=== PATIENT | male | born 1950 | race Caucasian/White ===

== ENCOUNTER 2018-08-01 10:07 | Emergency (ER) | payer OTHER ==
[2018-08-01 10:23] VITALS: TEMP 99.8; BMI 33.9
--- NOTE | 2018-08-01 10:28 | PDOC ---
History of Present Illness - General Chief Complaint: Redness To Affected Area Stated Complaint: RIGHT ELBOW PAIN Time Seen by Provider: 08/01/18 10:20 - History of Present Illness Initial Comments: 68yo M with PMH of HTN, HLD, DM, recent admission for RUE cellulitis presenting with right elbow pain. Patient reports that the pain started two days ago and describes it as excruciating. Denies injury or trauma to the area. No numbness , tingling, or loss of sensation. Patient says this pain is reminiscent of the previous episode of cellulitis for which he was admitted. Uncertain whether he had any fever or chills at home. Has not taken anything at home for his pain. Denies chest pain, shortness of breath, or abdominal pain. Per chart review: Patient went to urgent care on 05/19/18 and prescribed Keflex 500 TID Cellulitis worsened. Patient seen in this ED and admitted. Given Zosyn (05/23-05/30 ) and Vancomycin (05/25-05/30) Transitioned to Levaquin 500 and Augmentin 500. Discharged with ID followup Past History - Past Medical History Allergies/Adverse Reactions: Allergies Allergy/AdvReac Type Severity Reaction Status Date / Time No Known Allergies Allergy Verified 08/01/18 10:09 Home Medications: Ambulatory Orders Aspirin [Aspirin EC] 81 mg PO DAILY 05/23/18 Glimepiride 2 mg PO DAILY 05/23/18 Lotrel 10-40 1 tab PO DAILY 05/23/18 Metoprolol Succinate [Toprol Xl] 100 mg PO DAILY 05/23/18 [place]-3/Dha/Epa/Fish Oil [Fish Oil 1,000 mg Softgel] 1 each PO BID 05/23/18 Rosuvastatin Calcium [Crestor] 10 mg PO HS 05/23/18 Sitagliptin Phos/Metformin HCl [Janumet 50-1,000 mg Tablet] 1 each PO BID Acetaminophen [Tylenol .Regular Strength -] 650 mg PO Q4H PRN tablet 05/30/18 Amoxicillin/Potassium Clav [Augmentin 875-125 Tablet] 1 each PO BID #14 tablet 08/01/18 Levofloxacin [Levaquin] 500 mg PO DAILY #7 tablet 08/01/18 COPD: No Diabetes: Yes HTN: Yes Hypercholesterolemia: Yes - Suicide/Smoking/Psychosocial Hx Smoking History: Never smoked Have you smoked in the past 12 months: No Number of Cigarettes Smoked Daily: 0 Hx Alcohol Use: Yes (Fridays ONLY) Drug/Substance Use Hx: No Substance Use Type: None Hx Substance Use Treatment: No Review of Systems - Review of Systems Comments:: Constitutional: ?fever, ?chills Cardiovascular: no chest pain Respiratory: no shortness of breath Gastrointestinal: no abdominal pain, no nausea, no vomiting Musculoskeletal: +R.elbow pain Skin: no rash, no itching Neurologic: no headache, no dizziness *Physical Exam - Vital Signs Last Vital Signs Temp Pulse Resp BP Pulse Ox 99.8 F H 69 16 186/87 H 97 08/01/18 10:08 08/01/18 10:08 08/01/18 10:08 08/01/18 10:08 08/01/18 10:08 - Physical Exam Comments: General: Awake, alert, and fully oriented, in no acute distress Head: no signs of trauma Eyes: EOMI, sclera anicteric ENT: Moist mucus membranes Neck: Normal ROM, supple Lungs: Lungs clear, Normal breath sounds Cardio: Regular rhythm, S1 and S2 present Abdomen: Soft, nontender Extremities: Normal range of motion, Distal pulses present. 5x5cm area of cellulitis overlying R. elbow with warmth and erythema, pain on active and passive motion; no induration, fluctuance or streaking; neurovascularly intact SKIN: Warm, Dry, normal turgor Neurologic: Cranial nerves II through XII grossly intact. Normal speech ED Treatment Course - LABORATORY CBC & Chemistry Diagram: 08/01/18 11:00 08/01/18 11:00 Medical Decision Making - Medical Decision Making 68yo M with PMH of HTN, HLD, DM, recent admission for RUE cellulitis presenting with right elbow pain. -R. elbow imaging to assess for osteomyelitis -Labs: CBC, CMP, ESR, CRP, blood cultures -Vanc and Zosyn 08/01/18 11:02 WBC 7.0 08/01/18 11:25 ESR 25, CRP 5.2, Uric Acid 7.4 Discussed case with patient's PCP, Dr. Meadows. Plan to discharge patient with oral antibiotics. Will follow-up with Dr. Meadows on Saturday at 4:45pm. Patient amenable to plan. 08/01/18 14:40 *DC/Admit/Observation/Transfer Diagnosis at time of Disposition: Cellulitis Qualifiers: Site of cellulitis: extremity Site of cellulitis of extremity: upper extremity Laterality: right Qualified Code(s): L03.113 - Cellulitis of right upper limb - Discharge Dispostion Disposition: HOME Condition at time of disposition: Good - Prescriptions Prescriptions: Amoxicillin/Potassium Clav [Augmentin 875-125 Tablet] 1 each PO BID #14 tablet Levofloxacin [Levaquin] 500 mg PO DAILY #7 tablet - Referrals Referrals: Vick Meadows MD [Primary Care Provider] - - Patient Instructions Printed Discharge Instructions: DI for Cellulitis -- Adult Additional Instructions: Follow-up with Dr. Meadows on Saturday08/06/18 at 4:45pm Prescriptions sent to your pharmacy. You can take [id number] tylenol for your pain. Follow the instructions on the medication bottle. RETURN to the ED if: you develop any high fevers, develop nausea or vomiting, have spreading redness beyond the outlined margins, or severe pain at the infection site. - Post Discharge Activity
--- NOTE | 2018-08-01 10:41 | PDOC ---
Attending Attestation - Resident Resident Name: Khushi Calderon - ED Attending Attestation I have performed the following: I have examined & evaluated the patient, The case was reviewed & discussed with the resident, I agree w/resident's findings & plan, Exceptions are as noted - HPI HPI: 08/01/18 10:41 68 yo M h/o HTN, HLD, Dm, recent admission for septic bursitis (s/p Vanc and Zosyn) He returns to the ER with a complaint of right elbow pain with range of motion No known fevers at home No known traumatic injury - Physicial Exam PE: 08/01/18 10:41 GENERAL: The patient is in no acute distress. LUNGS: Breath sounds equal, clear to auscultation bilaterally. HEART:Regular rate and rhythm, normal S1 and S2 without murmur, rub or gallop. ABDOMEN: Soft, nontende EXTREMITIES: right elbow swollen, erythematous, warm, pain with range of motion (active or passive), not tender to palpation NEUROLOGICAL: Cranial nerves II through XII grossly intact. Normal speech. No focal neurological deficits. MUSCULOSKELETAL: no deformities, right elbow swollen SKIN: see above, no open skin, no rash, no wounds, no purulent drainage 08/01/18 11:06 - Medical Decision Making 08/01/18 11:07 Will do: rectal temp (oral temp 99.8, concerning for fever) Labs including ESR, CRP, Blood culture Will do Xray Unclear why this has recurred Will give Vanc and Zosyn Possible Admission Pt seen by hospitalist Pt can be discharged to home on po abx Discharge Disposition - Diagnosis Cellulitis Qualifiers: Site of cellulitis: extremity Site of cellulitis of extremity: upper extremity Laterality: right Qualified Code(s): L03.113 - Cellulitis of right upper limb - Discharge Dispostion Disposition: HOME Condition at time of disposition: Good Last Admission D/C Date: 05/30/18 - Prescriptions Prescriptions: Amoxicillin/Potassium Clav [Augmentin 875-125 Tablet] 1 each PO BID #14 tablet Levofloxacin [Levaquin] 500 mg PO DAILY #7 tablet - Referrals Referrals: Vick Meadows MD [Primary Care Provider] - - Patient Instructions Printed Discharge Instructions: DI for Cellulitis -- Adult Additional Instructions: Follow-up with Dr. Meadows on Saturday08/06/18 at 4:45pm Prescriptions sent to your pharmacy. You can take [id number] tylenol for your pain. Follow the instructions on the medication bottle. RETURN to the ED if: you develop any high fevers, develop nausea or vomiting, have spreading redness beyond the outlined margins, or severe pain at the infection site. - Post Discharge Activity
[2018-08-01] MEDS ORDERED: PIPERACILLIN/TAZOB 3.375 GM 3.375 GM in DEXTROSE 5%-WATER - 50 ML IVPB ONE (10:49)
[2018-08-01] MEDS ORDERED: VANCOMYCIN 1,000 MG in DEXTROSE 5%-WATER - 250 ML IVPB ONE (10:49)
[2018-08-01] MEDS ORDERED: VANCOMYCIN 1,000 MG VIAL (RESTRICTED TO ID ONLY) ONE (11:16)
[2018-08-01] MEDS ORDERED: PIPERACILLIN/TAZOBACTAM 3.375 GM VIAL IVPB ONE (11:16)
[2018-08-01 11:22] LABS: BASO % 0.2 % (0-2.0); EOS % 0.6 % (0-4.5); HEMOGLOBIN 12.9 GM/dl (11.7-16.9); LYMPH % 16.8 % (8-40); MCH 28.6 pg (25.7-33.7); MCHC 32.3 g/dl (32.0-35.9); MEAN CELL VOLUME 88.6 fl (80-96); MEAN PLT VOLUME 8.3 fl (7.5-11.1); MONO % 11.4 % (3.8-10.2); PLATELET COUNT 184 K/MM3 (134-434); RBC 4.52 M/mm3 (4.00-5.60); RDW 14.7 % (11.9-15.9)
[2018-08-01 11:45] LABS: ALBUMIN 4.1 g/dl (3.5-5.0); ALK PHOS 34 U/L (32-92); ANION GAP 8 MMOL/L (8-16); BILIRUBIN,TOTAL 1.7 mg/dl (0.2-1.0); BLOOD UREA NITROGEN 21 mg/dl (7-18); CHLORIDE 101 mmol/L (98-107); CO2 25 mmol/L (22-28); CREATININE 1.1 mg/dl (0.6-1.3); GLUCOSE,RANDOM 168 mg/dl (74-106); POTASSIUM 4.1 mmol/L (3.5-5.1); SGOT/AST 23 U/L (10-42); SGPT/ALT 23 U/L (10-40); SODIUM 134 mmol/L (136-145); TOT PROT 7.5 g/dl (6.4-8.3); URIC ACID 7.4 mg/dl (2.6-7.2)
[2018-08-01 11:56] LABS: ERYTHROCYTE SEDIMENTATION RATE 25 mm/hr (0-20)
[2018-08-01 14:54] VITALS: BP 170/83; PULSE 68
== END 2018-08-01 14:55 | disposition home or self-care (01) ==
LOC: FER 10:07
DX: L03.113 Cellulitis of right upper limb (principal); I10 Essential (primary) hypertension; E78.5 Hyperlipidemia, unspecified; E11.9 Type 2 diabetes mellitus without complications; Z79.82 Long term (current) use of aspirin; Z79.84 Long term (current) use of oral hypoglycemic drugs
CPT/HCPCS: 36415; 73070-TC-RT-FY; 80053; 84550; 85025; 85651; 86140; 87040; 99283-25

== ENCOUNTER 2020-12-29 04:12 | Day surgery (SDC) | payer OTHER ==
[2020-12-26 17:10] VITALS: BMI 32.8
[2020-12-29] MEDS ORDERED: HEPARIN NA (PORCINE) 5,000 UNITS/ML 1ML VIAL ONE (07:55)
[2020-12-29] MEDS ORDERED: LIDOCAINE HCL 1%, 10 MG/ML (20ML VIAL) ONE (07:55)
[2020-12-29] MEDS ORDERED: IOVERSOL 320 MG/ML ML IV ONE ×2 (08:38→09:54)
[2020-12-29] MEDS ORDERED: LIDOCAINE HCL 1%, 10 MG/ML (20ML VIAL) INF ONE ×3 (08:39→09:43)
[2020-12-29] MEDS ORDERED: PROPOFOL 20 ML ONE ×2 (10:02→11:03)
[2020-12-29] MEDS ORDERED: ONDANSETRON 4 MG/2 ML VIAL IVPUSH PRN (11:36)
[2020-12-29] MEDS ORDERED: oxyCODONE HCL 5 MG TABLET PO PRN (11:36)
[2020-12-29] MEDS ORDERED: CLOPIDOGREL BISULFATE 75 MG TABLET (FP) PO ONE ×2 (11:45→12:37)
[2020-12-29] MEDS ORDERED: CLOPIDOGREL BISULFATE 75 MG TABLET (FP) ONE (12:19)
[2020-12-29 13:27] VITALS: TEMP 97.5
[2020-12-29 13:29] VITALS: PULSE 60
[2020-12-29 13:45] VITALS: BP 160/60
== END 2020-12-29 13:55 | disposition home or self-care (01) ==
LOC: JASU-SURG 04:12
PROVIDERS: ATTEND Surgery Vascular Surgery
PROC: 047L3DZ Dilation of Left Femoral Artery with Intraluminal Device, Percutaneous Approach (ICD-10-PCS; principal; 2020-12-29 08:30)
DX: I70.212 Atherosclerosis of native arteries of extremities with intermittent claudication, left leg (principal); E11.9 Type 2 diabetes mellitus without complications; I10 Essential (primary) hypertension
CPT/HCPCS: 37227; C1877; 76000-TC-FY; 82962; 86850; 86900; 86901; 94760; J1644

== ENCOUNTER 2021-02-01 08:19 | Day surgery (SDC) | payer OTHER ==
[2021-01-27 14:16] VITALS: BMI 33.9
[2021-02-01] MEDS ORDERED: CIPROFLOXACIN 0.3% EYE DROPS 5 ML BOTTLE ONE (08:52)
[2021-02-01] MEDS: PHENYLEPHRINE 2.5% OPHTH SOLN 15 ML BOTTLE ONE ×3 (09:10→09:20)
[2021-02-01] MEDS: CYCLOPENTOLATE 2% OPHTH SOLN 2 ML BOTTLE ONE ×3 (09:10→09:20)
[2021-02-01] MEDS: TROPICAMIDE 1% OPHTH SOLN 15 ML BOTTLE ONE ×3 (09:10→09:20)
[2021-02-01] MEDS: CIPROFLOXACIN 0.3% EYE DROPS 5 ML BOTTLE ONE ×3 (09:10→09:20)
[2021-02-01] MEDS ORDERED: MIDAZOLAM HCL 2 MG/2 ML SINGLE DOSE VIAL ONE ×2 (10:33→10:51)
[2021-02-01] MEDS ORDERED: NEO/POLYMYX B SULF/DEXAMETH OPHTHALMIC 5ML BOTTLE ONE (10:40)
[2021-02-01] MEDS ORDERED: LIDOCAINE 1% P/F 10 MG/ML VIAL ONE (10:40)
[2021-02-01] MEDS ORDERED: TETRACAINE 0.5% OPHTH SOLN 2 ML BOTTLE ONE (10:40)
[2021-02-01] MEDS ORDERED: CARBACHOL 0.01% INTRA-OCULAR 1.5 ML VIAL ONE (10:40)
[2021-02-01] MEDS ORDERED: BSS (NA/CA/MG/K) BALANCED SALT SOLUTION OPHTH SOLN 15 ML BOTTLE ONE (10:40)
[2021-02-01] MEDS ORDERED: ONDANSETRON 4 MG/2 ML VIAL ONE (10:51)
[2021-02-01 12:39] VITALS: PULSE 56; TEMP 98.6
[2021-02-01 12:53] VITALS: BP 121/65
== END 2021-02-01 12:10 | disposition home or self-care (01) ==
LOC: FASU 08:19
PROVIDERS: ATTEND Ophthalmology
PROC: 08RK3JZ Replacement of Left Lens with Synthetic Substitute, Percutaneous Approach (ICD-10-PCS; principal; 2021-02-01 10:55)
DX: H26.8 Other specified cataract (principal)
CPT/HCPCS: 82962

== ENCOUNTER 2021-03-29 07:32 | Day surgery (SDC) | payer OTHER ==
[2021-03-20 11:56] VITALS: BMI 33.9
[2021-03-29] MEDS ORDERED: ONDANSETRON 4 MG/2 ML VIAL IVPUSH PRN (07:55)
[2021-03-29] MEDS: CYCLOPENTOLATE 2% OPHTH SOLN 2 ML BOTTLE ONE ×3 (08:00→08:13)
[2021-03-29] MEDS: TROPICAMIDE 1% OPHTH SOLN 15 ML BOTTLE ONE ×3 (08:00→08:13)
[2021-03-29] MEDS ORDERED: LACTATED RINGERS SOLUTION 1,000 ML IV SCH (08:00)
[2021-03-29] MEDS: CIPROFLOXACIN 0.3% EYE DROPS 5 ML BOTTLE ONE ×3 (08:00→08:13)
[2021-03-29] MEDS: PHENYLEPHRINE 2.5% OPHTH SOLN 15 ML BOTTLE ONE ×3 (08:00→08:13)
[2021-03-29 08:07] VITALS: TEMP 97.8
[2021-03-29] MEDS ORDERED: MIDAZOLAM HCL 2 MG/2 ML SINGLE DOSE VIAL ONE ×2 (09:22→09:57)
[2021-03-29 11:12] VITALS: BP 112/60; PULSE 66
== END 2021-03-29 11:10 | disposition home or self-care (01) ==
LOC: FASU 07:32
PROVIDERS: ATTEND Ophthalmology
PROC: 08RJ3JZ Replacement of Right Lens with Synthetic Substitute, Percutaneous Approach (ICD-10-PCS; principal; 2021-03-29 10:01)
DX: H26.8 Other specified cataract (principal)
CPT/HCPCS: 82962

== ENCOUNTER 2021-09-11 11:48 | Emergency (ER) | payer OTHER ==
[2021-09-11 12:02] VITALS: BP 182/86; PULSE 74; TEMP 99.2; BMI 33.2
[2021-09-11] MEDS ORDERED: ACETAMINOPHEN 325 MG TABLET (FP) PO ONE (12:50)
[2021-09-11] MEDS ORDERED: ACETAMINOPHEN 325 MG TABLET (FP) ONE (12:53)
== END 2021-09-11 14:28 | disposition home or self-care (01) ==
LOC: FER 11:48
DX: M79.674 Pain in right toe(s) (principal)
CPT/HCPCS: 73630-TC-RT-FY; 99283-25

== ENCOUNTER 2022-01-04 04:06 | Day surgery (SDC) | payer OTHER ==
[2022-01-03 11:45] VITALS: BMI 33.0
[2022-01-04] MEDS ORDERED: PROPOFOL 20 ML ONE ×2 (07:09)
[2022-01-04] MEDS ORDERED: HEPARIN NA (PORCINE) 5,000 UNITS/ML 1ML VIAL ONE ×2 (07:50→09:29)
[2022-01-04] MEDS ORDERED: LIDOCAINE HCL 1%, 10 MG/ML (20ML VIAL) NR ONE ×2 (07:55→09:16)
[2022-01-04] MEDS ORDERED: HEPARIN NA (PORCINE) 5,000 UNITS/ML 1ML VIAL SQ ONE ×2 (07:56→09:21)
[2022-01-04] MEDS ORDERED: IOVERSOL 320 MG/ML ML IV ONE ×2 (07:57→09:21)
[2022-01-04] MEDS ORDERED: MIDAZOLAM HCL 2 MG/2 ML SINGLE DOSE VIAL ONE (08:58)
[2022-01-04] MEDS ORDERED: ceFAZolin 2 GRAM PREMIX BAG IVPB ONE (09:10)
[2022-01-04] MEDS ORDERED: ceFAZolin SODIUM 1 GM VIAL ONE (09:17)
[2022-01-04] MEDS ORDERED: oxyCODONE HCL 5 MG TABLET PO PRN ×2 (11:09)
[2022-01-04] MEDS ORDERED: ONDANSETRON 4 MG/2 ML VIAL IVPUSH PRN (11:09)
[2022-01-04] MEDS ORDERED: LACTATED RINGERS SOLUTION 1,000 ML IV SCH (11:15)
[2022-01-04 13:06] VITALS: PULSE 62
[2022-01-04 13:20] VITALS: BP 148/67; TEMP 98
== END 2022-01-04 13:22 | disposition home or self-care (01) ==
LOC: JASU-SURG 04:06
PROVIDERS: ATTEND Surgery Vascular Surgery
PROC: 047L3Z1 Dilation of Left Femoral Artery using Drug-Coated Balloon, Percutaneous Approach (ICD-10-PCS; 2022-01-04)
PROC: 04CL3ZZ Extirpation of Matter from Left Femoral Artery, Percutaneous Approach (ICD-10-PCS; 2022-01-04)
PROC: 047Q3Z1 Dilation of Left Anterior Tibial Artery using Drug-Coated Balloon, Percutaneous Approach (ICD-10-PCS; principal; 2022-01-04 09:00)
DX: I70.212 Atherosclerosis of native arteries of extremities with intermittent claudication, left leg (principal)
CPT/HCPCS: 37225; 37228; C1885; C2623; 76000-TC-FY; 82962; 94760; J1644

== ENCOUNTER 2022-03-19 14:09 | Emergency (ER) | payer OTHER ==
[2022-03-19 14:32] VITALS: TEMP 98.1; BMI 33.9
[2022-03-19] MEDS ORDERED: SODIUM CHLORIDE 0.9% 500 ML INFUS.BAG IV ONE ×2 (17:57→20:24)
[2022-03-19 19:09] LABS: BASO % 1.2 % (0-2.0); EOS % 2.3 % (0-4.5); HEMATOCRIT 37.8 % (35.4-49); HEMOGLOBIN 12.4 GM/dL (11.7-16.9); LYMPH % 35.9 % (8-40); MCH 28.6 pg (25.7-33.7); MCHC 32.9 g/dl (32.0-35.9); MEAN CELL VOLUME 87.1 fl (80-96); MEAN PLT VOLUME 8.5 fl (7.5-11.1); MONO % 9.9 % (3.8-10.2); NEUT % 50.7 % (42.8-82.8); PLATELET COUNT 209 10^3/uL (134-434); RBC 4.35 M/mm3 (4.00-5.60); RDW 14.4 % (11.9-15.9); WHITE BLOOD COUNT 6.7 K/mm3 (4.0-10.0)
[2022-03-19 19:28] LABS: ALBUMIN 4.1 g/dl (3.4-5.0); BLOOD UREA NITROGEN 21.6 mg/dL (7-18); CALCIUM 8.9 mg/dL (8.5-10.1); MAGNESIUM 1.3 mg/dL (1.8-2.4)
[2022-03-19 19:31] LABS: CREATININE 1.4 mg/dL (0.55-1.3)
[2022-03-19 19:33] LABS: BILIRUBIN,TOTAL 0.4 mg/dL (0.2-1); TOT PROT 7.5 g/dl (6.4-8.2)
[2022-03-19] MEDS ORDERED: MAGNESIUM SULF 50% (8.12 MEQ/2 ML-1 GM VIAL) IVPB ONE (20:23)
[2022-03-19] MEDS ORDERED: MAGNESIUM SULFATE IN WATER 2 GM/50 ML IVPB IVPB ONE (20:26)
[2022-03-19 20:56] LABS: URINE APPEARANCE CLEAR; URINE BILIRUBIN NEGATIVE (NEGATIVE); URINE COLOR YELLOW; URINE GLUCOSE (UA) NEGATIVE (NEGATIVE); URINE KETONE TRACE (NEGATIVE); URINE LEUK ESTERASE NEGATIVE (NEGATIVE); URINE NITRITE NEGATIVE (NEGATIVE); URINE PROTEIN TRACE (NEGATIVE); URINE UROBILINOGEN 0.2 mg/dL (0.2-1.0)
[2022-03-19 21:58] VITALS: BP 140/82; PULSE 78
== END 2022-03-19 21:58 | disposition home or self-care (01) ==
LOC: JER 14:09
PROC: 3E033NZ Introduction of Analgesics, Hypnotics, Sedatives into Peripheral Vein, Percutaneous Approach (ICD-10-PCS; principal; 2022-03-19)
DX: R42 Dizziness and giddiness (principal)
CPT/HCPCS: 0241U-QW; 36415; 71045-TC-FY; 80053; 81003; 82962; 83735; 84484; 85025; 87086; 93005; 93010; 99284-25